=== PATIENT | male | born 1965 ===

== ENCOUNTER 2020-05-06 17:09 | Emergency (ER) | payer OTHER ==
[~2020-05-06] VITALS: Ht 175.3 cm; Wt 161.5 kg
[2020-05-06] MEDS ORDERED: TOPROL XL25 M1 (17:18)
[2020-05-06] MEDS ORDERED: ASPIR 8181 MG (17:18)
== END 2020-05-06 19:06 | disposition home or self-care (01) ==
LOC: ER 17:09
DX: M25.561 Pain in right knee (principal); G89.29 Other chronic pain